=== PATIENT | female | born 1965 | race Caucasian/White ===

== ENCOUNTER → 2017-03-11 | Outpatient (CLI) | payer OTHER | LOC: MAMMO 15:54 | DX: Z12.31 Encounter for screening mammogram for malignant neoplasm of breast (principal) ==

== ENCOUNTER 2018-10-13 08:30 | Outpatient (RCR) | payer OTHER | END 2018-10-13 09:00 | disposition still patient (30) | LOC: OT 08:30 | DX: T14.8XXA Other injury of unspecified body region, initial encounter (principal); Q74.0 Other congenital malformations of upper limb(s), including shoulder girdle ==

== ENCOUNTER → 2018-12-27 | Day surgery (SDC) | payer OTHER | LOC: MSO 08:05 | DX: Z12.11 Encounter for screening for malignant neoplasm of colon (principal); K57.30 Diverticulosis of large intestine without perforation or abscess without bleeding; Z90.710 Acquired absence of both cervix and uterus; Z85.828 Personal history of other malignant neoplasm of skin; Z80.0 Family history of malignant neoplasm of digestive organs | CPT/HCPCS: 00812; J2704; J7120 ==

== ENCOUNTER → 2023-11-11 | Outpatient (CLI) | payer BC ==
[~2023-11-11] MED LIST: Iohexol 300 - 100 ML VIAL IV ONE
== END ==
LOC: RAD 15:02
DX: K52.9 Noninfective gastroenteritis and colitis, unspecified (principal); K62.89 Other specified diseases of anus and rectum; K50.119 Crohn's disease of large intestine with unspecified complications
CPT/HCPCS: Q9967

== ENCOUNTER → 2023-12-08 | Outpatient (CLI) | payer BC ==
[2023-12-08 15:20] LABS: HEMATOCRIT 32.4 % (37.0-47.0); HEMOGLOBIN 10.3 g/dL (12.5-16.0); MEAN PLATELET VOLUME 9.4 fl (7.4-10.4); RED BLOOD COUNT 3.91 M/mm3 (4.10-5.30); RED CELL DISTRIBUTION WIDTH 17.3 % (11.5-14.5)
[2023-12-08 15:25] LABS: ALBUMIN 3.6 g/dL (3.5-5.0)
[2023-12-08 15:27] LABS: CALCIUM 9.4 mg/dL (8.3-10.5)
[2023-12-08 15:30] LABS: TOTAL BILIRUBIN 1.1 mg/dL (0.2-1.2)
[2023-12-08 15:33] LABS: WHITE BLOOD COUNT 20.3 K/mm3 (4.8-10.8)
== END ==
LOC: LAB 13:05 → RAD 13:05
PROVIDERS: Internal Medicine Gastroenterology
DX: K52.9 Noninfective gastroenteritis and colitis, unspecified (principal); K55.039 Acute (reversible) ischemia of large intestine, extent unspecified; I81 Portal vein thrombosis
CPT/HCPCS: Q9967

== ENCOUNTER → 2023-12-30 | Outpatient (CLI) | payer BC ==
[2023-12-30 14:22] LABS: HEMATOCRIT 36.8 % (37.0-47.0); HEMOGLOBIN 11.3 g/dL (12.5-16.0); MEAN PLATELET VOLUME 9.6 fl (7.4-10.4); RED BLOOD COUNT 4.31 M/mm3 (4.10-5.30); WHITE BLOOD COUNT 5.9 K/mm3 (4.8-10.8)
[2023-12-30 14:34] LABS: ALBUMIN 3.8 g/dL (3.5-5.0)
[2023-12-30 14:35] LABS: CALCIUM 9.8 mg/dL (8.3-10.5)
[2023-12-30 14:37] LABS: TOTAL PROTEIN 6.8 g/dL (6.4-8.3)
[2023-12-30 14:38] LABS: TOTAL BILIRUBIN 0.7 mg/dL (0.2-1.2)
== END ==
LOC: RAD 13:56
PROVIDERS: Internal Medicine Gastroenterology
DX: I81 Portal vein thrombosis (principal); K50.90 Crohn's disease, unspecified, without complications; K55.069 Acute infarction of intestine, part and extent unspecified
CPT/HCPCS: Q9967